=== PATIENT | male | born 1990 | race Two or more races ===

== ENCOUNTER 2017-05-14 14:23 | Emergency (ER) | payer OTHER ==
[~2017-05-14] VITALS: Ht 160 cm; Wt 77.1 kg
[2017-05-14] MEDS ORDERED: IBUPROFEN600 MG ORAL (14:44)
--- NOTE | 2017-05-14 14:44 | Emergency Room Report ---
History of Present Illness General Chief Complaint: Lower Back Pain or Injury Source: Patient Present Illness HPI 26-year-old male presents to the emergency department stating that he pulled his back muscles while at work 2 days ago. Patient states that he required 1 day of rest and now he feels much better however he needs a return to work note. Patient denies pain at this time. Patient denies trauma or fall. Patient states the injury occurred when he was lifting a washing machine. Denies numbness tingling or loss of sensation or gross motor movements of the extremities, incontinence of bowel or bladder. Denies CP, Palpitations, LOC, AMS , dizziness, Changes in Vision, Sensation, paresthesias, or a sudden severe headache. Denies fevers, chills, recent spinal procedures or hx of Ca. Allergies: Coded Allergies: No Known Allergies (Unverified , 05/14/17) Patient History Past Medical History: see triage record Past Surgical History: none Pertinent Family History: none Reviewed Nursing Documentation: PMH: Agreed; PSxH: Agreed Nursing Documentation-PMH Past Medical History: No Stated History Review of Systems All Other Systems: negative except mentioned in HPI Physical Exam Vital Signs Date Time Temp Pulse Resp B/P (MAP) Pulse Ox O2 Delivery O2 Flow Rate FiO2 05/14/17 14:33 98.5 82 18 99/52 96 Room Air 98.4 Sp02 EP Interpretation: reviewed, normal General Appearance: no apparent distress, alert, GCS 15, non-toxic Head: normocephalic, atraumatic ENT: hearing grossly normal, normal voice Neck: full range of motion Respiratory: lungs clear, normal breath sounds, speaking full sentences Cardiovascular #1: regular rate, rhythm Genitourinary: normal inspection Musculoskeletal: back normal, gait/station normal, normal range of motion, non- tender Neurologic: alert, oriented x3, responsive, motor strength/tone normal, sensory intact, normal gait, speech normal, grossly normal Psychiatric: judgement/insight normal Skin: normal color, no rash, warm/dry, well hydrated Medical Decision Making PA Attestation Dr. Camp is my supervising Physician whom patient management has been discussed with. Diagnostic Impression: Primary Impression: Lumbosacral pain Additional Impression: Low back strain Qualified Codes: S39.012A - Strain of muscle, fascia and tendon of lower back , initial encounter ER Course 26-year-old male presents to the emergency department stating that he pulled his back muscles while at work 2 days ago. Patient states that he required 1 day of rest and now he feels much better however he needs a return to work note. Patient denies pain at this time. Patient denies trauma or fall. Patient states the injury occurred when he was lifting a washing machine. Denies numbness tingling or loss of sensation or gross motor movements of the extremities, incontinence of bowel or bladder. Denies CP, Palpitations, LOC, AMS , dizziness, Changes in Vision, Sensation, paresthesias, or a sudden severe headache. Denies fevers, chills, recent spinal procedures or hx of Ca. Ddx considered but are not limited to Fracture, dislocation, contusion, Sprain/ Strain/Spasm, Epidural abscess, Neoplastic mets. Vital signs: are WNL, pt. is afebrile H&PE are most consistent with recent muscle strain - lumbar region. No TTP, no cauda equina, no neurological symptoms. NAD and ambulatory. ORDERS: - Imaging not warranted dx is clinical. ED INTERVENTIONS: -None DISCHARGE: At this time pt. is stable for d/c to home. Will provide printed patient care instructions, and any necessary prescriptions. Care plan and follow up instructions have been discussed with the patient prior to discharge. Last Vital Signs Date Time Temp Pulse Resp B/P (MAP) Pulse Ox O2 Delivery O2 Flow Rate FiO2 05/14/17 14:33 98.5 82 18 99/52 96 Room Air 98.4 Disposition: HOME, SELF-CARE Condition: Stable Scripts Ibuprofen* (MOTRIN*) 600 Mg Tablet 600 MG ORAL THREE TIMES A DAY, #30 TAB 0 Refills Prov: Kate Rios 05/14/17 Departure Forms: Return to Work Return to Work Date: May 15, 2017 Return to Full Activity: May 15, 2017 Patient Instructions: Lumbosacral Strain Additional Instructions: Take medications as directed. Follow up with a Primary Care Provider in 3-5 days, even if your symptoms have resolved. --Please review list of primary care clinics, if you do not already have a primary care provider Return sooner to ED if new symptoms occur, or current symptoms become worse. - Please note that this Emergency Department Report was dictated using [employer] machine operator technology software, occasionally this can lead to erroneous entry secondary to interpretation by the dictation equipment. Kate Rios May 14, 2017 14:44
[2017-05-14 14:57] VITALS: BP 99/52
== END 2017-05-14 14:57 | disposition home or self-care (01) ==
LOC: EMR 14:49
DX: S39.012A Strain of muscle, fascia and tendon of lower back, initial encounter (principal); M54.5 Low back pain; X50.0XXA Overexertion from strenuous movement or load, initial encounter; X50.9XXA Other and unspecified overexertion or strenuous movements or postures, initial encounter; Y92.89 Other specified places as the place of occurrence of the external cause; Y99.0 Civilian activity done for income or pay
CPT/HCPCS: 99283